=== PATIENT | female | born 1950 | race Caucasian/White ===

== ENCOUNTER → 2016-06-25 | Outpatient (CLI) | payer OTHER | LOC: FIMAGING 10:51 | PROVIDERS: ATTEND Physician Assistant Surgical | DX: Z98.1 Arthrodesis status (principal) ==

== ENCOUNTER → 2016-06-28 | Outpatient (CLI) | payer OTHER | LOC: FIMAGING 13:31 | DX: Z12.31 Encounter for screening mammogram for malignant neoplasm of breast (principal) | CPT/HCPCS: G0202 ==

== ENCOUNTER 2016-08-01 05:38 | Inpatient (IN) | payer OTHER ==
[~2016-08-01 05:38] MED LIST: ceFAZolin 2 GM/DEXTROSE 100 ML IV ONE; morphINE PF 5 MG/10 ML INJ IT ONE
[2016-08-01] MEDS ORDERED: ceFAZolin 2 GM/DEXTROSE 100 ML IV ONE (06:00)
[2016-08-01] MEDS ORDERED: morphINE PF 5 MG/10 ML INJ IT ONE (06:00)
[2016-08-01] MEDS ORDERED: LIDOCAINE 1% 2 ML INJ ONE (06:25)
[2016-08-01] MEDS ORDERED: BACITRACIN 50,000 UNITS/10 ML SYR IRR ONE (06:42)
[2016-08-01] MEDS ORDERED: BUPIVACAINE/EPI 0.25% 30 ML SDV ONE (06:42)
[2016-08-01] MEDS ORDERED: THROMBIN (BOVINE) 20,000 UNIT VIAL TP ONE (06:42)
[2016-08-01] MEDS ORDERED: SKIN ADHESIVE (DERMABOND) 1 EACH TP ONE ×2 (06:42→10:16)
[2016-08-01] MEDS ORDERED: REMIFENTANIL HCL 1 MG VIAL ONE ×3 (07:09→07:10)
[2016-08-01] MEDS ORDERED: PROPOFOL 200 MG/20 ML VIAL ONE (07:10)
[2016-08-01] MEDS ORDERED: fentaNYL 100 MCG/2 ML INJ ONE ×2 (07:10→10:53)
[2016-08-01] MEDS ORDERED: ROCURONIUM 50 MG/5 ML VIAL ONE (07:10)
[2016-08-01] MEDS ORDERED: PROPOFOL/EMULSION 500 MG/50 ML BOTTLE IV ONE ×2 (07:10→09:17)
[2016-08-01] MEDS ORDERED: ONDANSETRON 4 MG/2 ML VIAL ONE (07:59)
[2016-08-01] MEDS ORDERED: DEXAMETHASONE 4 MG/ML VIAL ONE (07:59)
[2016-08-01] MEDS ORDERED: morphINE PF 5 MG/10 ML INJ ONE (09:19)
[2016-08-01] MEDS ORDERED: SUGAMMADEX SODIUM 200 MG/2 ML VIAL IVP ONE (09:59)
[2016-08-01] MEDS ORDERED: NON-FORMULARY NEW DRUG (Ranitidine Hcl [Zantac 75] 75 MG) PO PRN (10:28)
[2016-08-01] MEDS ORDERED: CYCLOBENZAPRINE 10 MG TAB PO PRN (10:28)
[2016-08-01] MEDS ORDERED: BISACODYL 10 MG SUPP PR PRN (10:29)
[2016-08-01] MEDS ORDERED: LACTULOSE 20 GM/30 ML UDCUP PO PRN (10:29)
[2016-08-01] MEDS ORDERED: MAGNESIUM HYDROXIDE 30 ML UDCUP PO PRN (10:29)
[2016-08-01] MEDS ORDERED: DIAZEPAM 5 MG TAB PO PRN (10:29)
[2016-08-01] MEDS ORDERED: ONDANSETRON DISINTEGRATING 4 MG TAB PO PRN (10:29)
[2016-08-01] MEDS ORDERED: DIAZEPAM 10 MG/2 ML SYR IVP PRN (10:29)
[2016-08-01] MEDS ORDERED: POLYETHYLENE GLYCOL 3350 17 GM PKT PO PRN (10:29)
[2016-08-01] MEDS ORDERED: ONDANSETRON 4 MG/2 ML VIAL IVP PRN (10:29)
[2016-08-01] MEDS ORDERED: ACETAMINOPHEN 325 MG TAB PO PRN (10:29)
[2016-08-01] MEDS ORDERED: METHOCARBAMOL 750 MG TAB PO PRN (10:29)
[2016-08-01] MEDS ORDERED: diphenhydrAMINE 25 MG CAP PO PRN (10:29)
[2016-08-01] MEDS ORDERED: NS W/ 20 KCl/L 1,000 ML IV SCH (10:30)
[2016-08-01] MEDS ORDERED: oxyCODONE IR 5 MG TAB PO PRN (10:32)
--- NOTE | 2016-08-01 10:36 | POSTOPPROG ---
Post Op Note Date of Operation: 08/01/16 Surgeon: Josias Sanches Permastone Applicator: AURY Marcus PAC Anesthesia: GET(General Endotracheal) Pre-op Diagnosis: adjacent level break down, lumbar stenosis Post-op Diagnosis: adjacent level break down, lumbar stenosis Indication: adjacent level break down, lumbar stenosis Procedure: exploration, revision and removal of hardware L3-5; L2-3 TLIF/PSF Findings: Please Dr. Sanches operative note Inf/Abcess present in the surg proc area at time of surgery?: No EBL: 100cc Drains: Jose Maria Rodriguez Addendum - Addendum .: S: Low back pain O: NAD A&Ox3 MAEx4 5/5 and equal in BUE and BLE A/P 66 y/o female exploration, revision and removal of hardware L3-5; L2-3 TLIF/ PSF -Advance diet as tolerated -PT/OT -Optimize pain management -Post op xrays pending -DVT prophx: TEDs, SCDs, Lovenox POD1 -JPx1 -Please notify NS with any change in neuro/motor exam
[2016-08-01] MEDS ORDERED: DIAZEPAM 10 MG/2 ML SYR ONE (10:53)
[2016-08-01] MEDS ORDERED: HYDROmorphONE/DILAUDID 1 MG/ML SYR ONE (10:59)
--- NOTE | 2016-08-01 11:40 | GOP ---
[f rep st] OPERATIVE REPORT DATE OF OPERATION: 07/30/2016 SURGEON: Josias Sanches MD COUNTY ADMINISTRATOR: Khushi Marcus, JENNIFER. ANESTHESIA: General. PREOPERATIVE DIAGNOSIS: 1. Adjacent level breakdown with radiculopathy and left lower extremity pain at L2-3. 2. History of prior fusion, L3-L5. 3. Treatment refractory to nonoperative intervention PROCEDURES PERFORMED: 1. Posterior arthrodesis with approach to L2, L3, L4, L5. 2. Exploration of prior lumbar hardware, L3-L5. 3. Removal of segmental instrumentation, L3-L5, from the [employer] system. 4. Posterolateral fusion with bilateral pedicle screw placement into L2 and L3 from [employer] system. 5. Posterolateral fusion on the right between L2-3 with morselized autograft and allograft. 6. Left-sided L2-L3 hemilaminotomy with mesial facetectomy, foraminotomy, and nerve root decompression. 9. Left-sided L2-3 transforaminal lumbar interbody fusion with a 7 x 26 mm Capstone PEEK cage filled with morselized autograft and allograft. 10. Use of intraoperative 3D Stealth navigation. 11. Use of intraoperative fluoroscopy, less than 1 hour physician time. 12. Use of neuromonitoring. 13. Use of microscope. 14. Injection of preservative-free intrathecal narcotics. POSTOPERATIVE DIAGNOSIS: 1. Adjacent level breakdown with radiculopathy and left lower extremity pain at L2-3. 2. History of prior fusion, L3-L5. 3. Treatment refractory to nonoperative intervention FINDINGS: per imaging SPECIMENS: None. ESTIMATED BLOOD LOSS: 100 mL. INDICATIONS: The patient is a 66-year-old woman who has undergone prior lumbar fusion, L3-L5, back [place] [address] Arora. She did quite well for years and then presented with worsening back pain and left lower extremity radiculopathy. After failing nonoperative intervention, and after discussion of risks, benefits, and alternatives, we decided to proceed forth with surgery at the adjacent level breakdown at L2-3. She presents now for that surgical intervention. DESCRIPTION OF PROCEDURE: Patient brought to the operating theater and underwent general endotracheal anesthesia without complications. She had Venodynes, SEGUNDO hose, and a Woods catheter placed. She was then flipped prone onto the Jose Maria table. All bony prominences were inspected and padded. The lower lumbar region was identified and prepped and draped in the usual sterile surgical fashion. Using lateral fluoroscopy and a spinal needle, we then picked our entry point at the L2-L5 levels. This included the prior incision and was marked out more cranially. The incision was infiltrated with Marcaine with epinephrine and then taken down with the scalpel blade. We used the monopolar to take the incision down in the midline through the lumbodorsal fascia. to the level of the spinous process at L2 and L3. We then completed a subperiosteal dissection out to the transverse processes of L2 and L3. Care was taken to preserve the L1-L2 facet joint. We were able to identify the prior pedicle screws at L3 bilaterally at which point , we exposed the remainder of the hardware at L3, L4, and L5. Deep retractors were placed to maintain our exposure. We explored the fusion and noted that she was solidly fused. We then sequentially removed the cap screws from the bilateral L3-L5 levels and passed them off the field. We then removed the bilateral rods and sequentially remove the pedicle screws from L3, L4, and L5 from the [employer] system. We replaced the bilateral L3 pedicle screws with a 6.5 x 40 mm screw on the left at L3 and a 5.5 x 40 mm screw on the right at L3. We attached the 3D Stealth navigation clamp to the spinous process of L3 and completed a 3D Stealth navigation spin. Using 3D Stealth navigation, we then placed the engine pilot holes for the bilateral pedicle screws into L2. All holes were manually palpated with no evidence of any cortical breaches. We then placed 5.5 x 45 mm screws bilaterally into L2. Another 3D Stealth navigation spin demonstrated good placement of the hardware. At this point, the microscope was brought into the field to assist with microscopic dissection and to maintain illumination and magnification. Using a combination of the bur tip on the drill bit and Kerrison punches, we completed a left-sided L2-L3 hemilaminotomy with mesial facetectomy and resection of the pars. We distracted the left-sided L2-L3 disk space and complete left-sided L2- 3 diskectomy. We prepared the cartilaginous endplates and measured interbody space. We placed a 7 x 26 mm Capstone PEEK cage filled with morselized autograft and allograft anteriorly toward the midline. We packed additional morcellized autograft into the disk space for the interbody fusion. We let down distraction and decorticated the bone on the right side between L2-3. We placed 2 lordotic rods into the heads of the screws between L2 and L3 and secured them down with cap screws which were tightened per the stripper preliminary's setting. We placed morselized autograft and allograft on the right side between L2-3 for the posterolateral fusion. We injected preservative-free intrathecal narcotics and placed a drain in subfascial space. The wound was closed in multiple layers using Vicryl sutures for the deep layers and Dermabond for the skin. The patient's wounds were dressed sterilely. She was then flipped supine onto the transfer cart. She was awakened, extubated, and taken to recovery in stable condition. There were no complications and no noted changes on neuromonitoring throughout the procedure. COMPLICATIONS: None. /[id number]/MODL MTDD
[2016-08-01] MEDS ORDERED: FAMOTIDINE 20 MG TAB PO PRN (12:28)
[2016-08-01] MEDS: HYDROCODONE/APAP 10/325 TAB PO PRN ×2 (17:45→22:32)
[2016-08-01] MEDS: ATORVASTATIN CALCIUM 20 MG TAB PO SCH (17:45)
[2016-08-01] MEDS ORDERED: NON-FORMULARY NEW DRUG (Simvastatin [Zocor] 40 MG) PO SCH (18:00)
[2016-08-01] MEDS: FAMOTIDINE 20 MG TAB PO SCH (19:47)
[2016-08-01] MEDS: AMITRIPTYLINE HCL 10 MG TAB PO SCH (19:47)
[2016-08-01] MEDS: SENNOSIDES/DOCUSATE SODIUM TAB PO SCH (19:48)
[2016-08-01] MEDS: FLUTICASONE NASAL 120 SPRAYS/16 GM MDI EACHNARE SCH (19:48)
[2016-08-01] MEDS ORDERED: FAMOTIDINE 20 MG/NACL 50 ML IV SCH (21:00)
[2016-08-01] MEDS: LISINOPRIL 20 MG TAB PO SCH (21:38)
[2016-08-02] MEDS: LEVOTHYROXINE 25 MCG TAB PO SCH (05:24)
[2016-08-02] MEDS ORDERED: PENTOSAN POLYSULFATE SODIUM 100 MG PO SCH (09:00)
[2016-08-02] MEDS: FAMOTIDINE 20 MG TAB PO SCH ×2 (09:32→20:28)
[2016-08-02] MEDS: ESCITALOPRAM OXALATE 10 MG TAB PO SCH (09:32)
[2016-08-02] MEDS: HYOSCYAMINE SULFATE 0.375 MG TAB.SR PO SCH (09:32)
[2016-08-02] MEDS: CETIRIZINE 10 MG TAB PO SCH (09:33)
[2016-08-02] MEDS: SENNOSIDES/DOCUSATE SODIUM TAB PO SCH ×2 (09:33→20:25)
[2016-08-02] MEDS: HYDROCODONE/APAP 10/325 TAB PO PRN ×3 (10:12→20:26)
[2016-08-02] MEDS: Pentosan Polysulfate Sodium [Elmiron] 100 MG) PO SCH (11:49)
[2016-08-02] MEDS ORDERED: ENOXAPARIN 40 MG/0.4 ML SYR SC SCH (12:00)
--- NOTE | 2016-08-02 12:15 | NEUSURGPN ---
Assessment/Plan: 66y/o female s/p removal and revision of hardware L3-L5 with TLIF/PSF L2-3 POD1 -Optimize pain management -PT/OT -Continue JOSE drain -Post on xrays pending -DVT prophx: TEDs, SCDs, lovenox -Please notify NS with any change in neuro/motor exam Subjective: leg pain improved, low back pain Objective: NAD A&Ox3 5/5 and equal in BUE and BLE. Incision c/d/i Catheter Insertion Date: 08/01/16 - Physician Discussed Patient with : [facility] Physical Exam - Vitals, I&O, Labs I and O 08/01/16 08/02/16 08/03/16 05:59 05:59 05:59 Intake Total 2100 1550 Output Total 2315 Balance -215 1550 Weight 72.57 kg Intake: Oral (ml) 350 IV Intake (ml) 1600 IV Infused (ml) 500 1200 NS W/ 20 KCl/L 1,000 ml @ 450 1200 75 mls/hr IV CONT HAN Rx #:[id number] ceFAZolin 1 GM/DEXTROSE 50 50 ml @ 200 mls/hr IV Q8HRS HAN Rx#:[id number] Output: Urine (ml) 0 Catheter 0 Estimated Blood Loss (ml) 100 Wound Drainage (ml) 165 Left Back Jose Maria Perez 165 Other: Intake Quantity Yes Yes Sufficient Vital Signs Temp Pulse Resp BP Pulse Ox 36.7 C 78 12 117/65 93 08/02/16 07:55 08/02/16 07:55 08/02/16 07:55 08/02/16 07:55 08/02/16 08:11 ICD10 Worksheet Patient Problems: Problems Problem Status Onset Arthritis of knee, degenerative Acute
[2016-08-02] MEDS ORDERED: diphenhydrAMINE 25 MG CAP PO PRN (15:54)
[2016-08-02] MEDS: ATORVASTATIN CALCIUM 20 MG TAB PO SCH (17:43)
[2016-08-02] MEDS: LISINOPRIL 20 MG TAB PO SCH (20:25)
[2016-08-02] MEDS: AMITRIPTYLINE HCL 10 MG TAB PO SCH (20:28)
[2016-08-02] MEDS: FLUTICASONE NASAL 120 SPRAYS/16 GM MDI EACHNARE SCH (21:29)
[2016-08-03] MEDS: HYDROCODONE/APAP 10/325 TAB PO PRN ×4 (00:02→12:51)
[2016-08-03 00:36] VITALS: O2SAT 91
[2016-08-03] MEDS: LEVOTHYROXINE 25 MCG TAB PO SCH (05:49)
[2016-08-03 07:34] VITALS: BP 105/66; PULSE 82; RESP 15; TEMP 98.6
--- NOTE | 2016-08-03 08:10 | NEUSURGPN ---
Assessment/Plan: 66y/o female s/p removal and revision of hardware L3-L5 with TLIF/PSF L2-3 POD2 -Optimize pain management -PT/OT -DC JOSE drain 12noon today -Post on xrays show stable hardware -DVT prophx: TEDs, SCDs, lovenox -Please notify NS with any change in neuro/motor exam -Plan for DC home this afternoon pending clinical course Subjective: Pt resting in bed. Pain well controlled. Wants to go home. Objective: AAOx3 NAD VSS MAEx4 Motor 5/5 BLE +LT Incision cdi JPx1 Urinary Catheter in Place: No Catheter Insertion Date: 08/01/16 Neurosurgery Physical Exam - Vitals, I&O, Labs I and O 08/02/16 08/03/16 08/04/16 05:59 05:59 05:59 Intake Total 2100 2790 Output Total 2315 370 Balance -215 2420 Weight 72.57 kg Intake: Oral (ml) 1090 IV Intake (ml) 1600 IV Infused (ml) 500 1700 NS W/ 20 KCl/L 1,000 ml @ 450 1700 75 mls/hr IV CONT HAN Rx #:[id number] ceFAZolin 1 GM/DEXTROSE 50 50 ml @ 200 mls/hr IV Q8HRS HAN Rx#:[id number] Output: Urine (ml) 2050 250 Catheter 2050 Toilet 250 Estimated Blood Loss (ml) 100 Wound Drainage (ml) 165 120 Left Back Jose Maria Perez 165 120 Other: Intake Quantity Yes Yes Sufficient Number of Voids Toilet 1 Vital Signs Temp Pulse Resp BP Pulse Ox 37.0 C 82 15 105/66 91 L 08/03/16 07:33 08/03/16 07:33 08/03/16 07:33 08/03/16 07:33 08/03/16 07:33 ICD10 Worksheet Patient Problems: Problems Problem Status Onset Arthritis of knee, degenerative Acute
[2016-08-03] MEDS: HYOSCYAMINE SULFATE 0.375 MG TAB.SR PO SCH (08:42)
[2016-08-03] MEDS: CETIRIZINE 10 MG TAB PO SCH (08:42)
[2016-08-03] MEDS: SENNOSIDES/DOCUSATE SODIUM TAB PO SCH (08:42)
[2016-08-03] MEDS: FAMOTIDINE 20 MG TAB PO SCH (08:42)
[2016-08-03] MEDS: ESCITALOPRAM OXALATE 10 MG TAB PO SCH (08:42)
[2016-08-03] MEDS: Pentosan Polysulfate Sodium [Elmiron] 100 MG) PO SCH (08:57)
[2016-08-04] MEDS ORDERED: ENOXAPARIN 40 MG/0.4 ML SYR SC SCH (09:00)
== END 2016-08-03 13:22 | disposition home or self-care (01) | DRG 460 ==
LOC: F3N 05:38
PROVIDERS: ADMIT Neurological Surgery; ATTEND Neurological Surgery
PROC: 8E0WXBZ Computer Assisted Procedure of Trunk Region (ICD-10-PCS; principal; 2016-08-01 07:15)
PROC: 4A1004G Monitoring of Central Nervous Electrical Activity, Intraoperative, Open Approach (ICD-10-PCS; principal; 2016-08-01 07:15)
PROC: 0SP00AZ Removal of Interbody Fusion Device from Lumbar Vertebral Joint, Open Approach (ICD-10-PCS; principal; 2016-08-01 07:15)
PROC: 0SB00ZZ Excision of Lumbar Vertebral Joint, Open Approach (ICD-10-PCS; principal; 2016-08-01 07:15)
PROC: 0SG00AJ Fusion of Lumbar Vertebral Joint with Interbody Fusion Device, Posterior Approach, Anterior Column, Open Approach (ICD-10-PCS; principal; 2016-08-01 07:15)
DX: M43.16 Spondylolisthesis, lumbar region (principal); M48.06 Spinal stenosis, lumbar region; M54.16 Radiculopathy, lumbar region; I10 Essential (primary) hypertension; K58.9 Irritable bowel syndrome, unspecified; K21.9 Gastro-esophageal reflux disease without esophagitis; F41.8 Other specified anxiety disorders; Z96.643 Presence of artificial hip joint, bilateral; Z96.651 Presence of right artificial knee joint
CPT/HCPCS: 97161-GP; 97165-GO; C1713; G8978-GP-CI; G8979-GP-CI; G8980-GP-CI; G8987-GO-CJ; G8988-GO-CJ; G8989-GO-CJ; J0690; J1100; J1170; J2274; J2405; J2704; J3010

== ENCOUNTER → 2016-09-09 | Outpatient (CLI) | payer OTHER | LOC: FIMAGING 08:58 | PROVIDERS: ATTEND Physician Assistant Surgical | DX: Z09 Encounter for follow-up examination after completed treatment for conditions other than malignant neoplasm (principal); Z98.1 Arthrodesis status ==

== ENCOUNTER → 2016-11-01 | Outpatient (CLI) | payer OTHER | LOC: FIMAGING 11:30 | PROVIDERS: ATTEND Physician Assistant Surgical | DX: M43.16 Spondylolisthesis, lumbar region (principal); M48.06 Spinal stenosis, lumbar region; Z98.1 Arthrodesis status ==

== ENCOUNTER → 2017-01-27 | Outpatient (CLI) | payer OTHER | LOC: FIMAGING 11:29 | PROVIDERS: ATTEND Physician Assistant | DX: Z09 Encounter for follow-up examination after completed treatment for conditions other than malignant neoplasm (principal); Z98.1 Arthrodesis status ==

== ENCOUNTER → 2017-02-13 | Outpatient (CLI) | payer OTHER | LOC: FIMAGING 15:08 | PROVIDERS: ATTEND Physician Assistant | DX: M51.36 Other intervertebral disc degeneration, lumbar region (principal); Z98.1 Arthrodesis status ==

== ENCOUNTER → 2017-08-21 | Outpatient (CLI) | payer OTHER | LOC: FIMAGING 09:10 | PROVIDERS: ATTEND Physician Assistant | DX: M51.37 Other intervertebral disc degeneration, lumbosacral region (principal); Z98.1 Arthrodesis status ==

== ENCOUNTER → 2018-02-14 | Outpatient (CLI) | payer OTHER ==
[~2018-02-14] MED LIST changes: +GADOBUTROL 10 ML VIAL IVP ONE; -ceFAZolin 2 GM/DEXTROSE 100 ML IV ONE; -morphINE PF 5 MG/10 ML INJ IT ONE
== END ==
LOC: FIMAGING 10:48
PROVIDERS: ATTEND Physical Medicine & Rehabilitation Neuromuscular Medicine
DX: Z98.1 Arthrodesis status (principal); R60.9 Edema, unspecified
CPT/HCPCS: 72100; 72158; A9585; 82565-PO

== ENCOUNTER → 2018-05-18 | Outpatient (CLI) | payer OTHER | LOC: FIMAGING 11:02 | PROVIDERS: ATTEND Obstetrics & Gynecology | DX: Z12.31 Encounter for screening mammogram for malignant neoplasm of breast (principal) ==